=== PATIENT | male | born 1950 | race African-American/Black ===

== ENCOUNTER 2018-03-14 07:27 | Day surgery (SDC) | payer OTHER, BC ==
[2018-03-11 09:51] VITALS: BMI 34.7
[2018-03-14] MEDS ORDERED: DEXAMETHASONE SOD PHOSPHATE 4 MG/1 ML VIAL ONE (09:59)
[2018-03-14] MEDS ORDERED: LIDOCAINE HCL/PF 2% SDV 5ML VIAL ONE (09:59)
[2018-03-14] MEDS ORDERED: MIDAZOLAM HCL 2 MG/2 ML SINGLE DOSE VIAL ONE (09:59)
[2018-03-14] MEDS ORDERED: PROPOFOL 20 ML ONE (09:59)
[2018-03-14] MEDS ORDERED: LACTATED RINGERS SOLUTION 1,000 ML IV SCH (11:15)
[2018-03-14] MEDS ORDERED: ONDANSETRON 4 MG/2 ML VIAL IVPUSH PRN (11:15)
[2018-03-14] MEDS ORDERED: oxyCODONE HCL 5 MG TABLET PO PRN ×2 (11:15)
--- NOTE | 2018-03-14 12:10 | OP ---
Operative Note - Note: Operative Date: 03/14/18 Pre-Operative Diagnosis: bph; chronic kidney disease; gross hematuria Operation: cystoscopy/bilateral retrograde pyelogram/left ureteroscopy Findings: left ureteral stricture secondary to J hooking of ureter no evidence of bladder/ureteral/renal masses 2+ bladder trabeculation with cellules 3+ obstructive prostate Post-Operative Diagnosis: Other (same with left ureteral stricture) Surgeon: Marko Sneed Anesthesia: General
[2018-03-14 14:14] VITALS: BP 143/88; PULSE 72
--- NOTE | 2018-03-14 21:07 | OP ---
DATE OF OPERATION: 03/14/2018 PREOPERATIVE DIAGNOSES: Benign prostatic hypertrophy, chronic kidney disease, and gross hematuria. POSTOPERATIVE DIAGNOSES: Benign prostatic hypertrophy, chronic kidney disease, and gross hematuria, with left ureteral stricture. PROCEDURE: Cystoscopy, bilateral retrograde pyelogram, and left ureteroscopy. ATTENDING: Keke Azevedo MD ANESTHESIA: General. DESCRIPTION OF OPERATION: The patient has a history of gross hematuria. The patient has chronic kidney disease that precludes him from receiving intravenous contrast for CAT scans. The patient has had multiple episodes of gross, painless hematuria. Office cystoscopy showed no evidence of neoplasm within the bladder. The patient at this time is brought to the operating room for bilateral retrograde pyelogram to evaluate the ureter and renal collecting systems bilaterally. Patient understands all risks and benefits. Patient was brought in the operating room, placed in supine position on the operating room table. General anesthesia was administered without problems. Preoperative antibiotics were administered. At this point, the patient was placed in the dorsal lithotomy position and prepped and draped in the usual sterile manner. Cystoscopy is performed. The bladder is investigated and noticed to have an obstructive prostate with bullous edema at the bladder neck. No evidence of neoplasm within the prostate or bladder is noted; 2+ bladder trabeculation with multiple cellules is noted. Both ureteral orifices are identified. A right retrograde pyelogram is performed which is within normal limits. No evidence of renal or ureteral filling defects is noted. Excellent drainage is noted. On the left side, an attempt is made at a left retrograde pyelogram. The open-ended catheter was passed into the distal left ureteral orifice. However, it was not possible to infuse the ureter with the Hypaque. Ureteroscopy was required. The wire was passed into the left ureter. A false passage secondary to a ureteral stricture had been caused by the open-ended catheter. With the wire passed proximally, the open-ended catheter was then passed over the wire utilizing the Seldinger technique. The retrograde pyelogram was then able to be performed. There was no evidence of filling defects or neoplasms within the ureter or renal collecting system. There was adequate drainage without evidence of obstruction. The patient was left without stents. The cystoscope was removed. No complications were noted. The disposition of the patient was to the recovery room. KEKE AZEVEDO M.D. [id number]
[2018-03-14 22:12] VITALS: TEMP 98.5
== END 2018-03-14 14:36 | disposition home or self-care (01) ==
LOC: JASU-SURG 07:27
PROVIDERS: ATTEND Urology
PROC: BT14YZZ Fluoroscopy of Kidneys, Ureters and Bladder using Other Contrast (ICD-10-PCS; principal; 2018-03-14 09:00)
DX: N40.1 Benign prostatic hyperplasia with lower urinary tract symptoms (principal); R31.0 Gross hematuria; N13.5 Crossing vessel and stricture of ureter without hydronephrosis; I12.9 Hypertensive chronic kidney disease with stage 1 through stage 4 chronic kidney disease, or unspecified chronic kidney disease; N18.9 Chronic kidney disease, unspecified
CPT/HCPCS: 76000-TC-FY; 94760

== ENCOUNTER 2019-11-15 07:05 | Day surgery (SDC) | payer OTHER, BC ==
[2019-11-14 15:01] VITALS: BMI 37.7
[2019-11-15] MEDS ORDERED: ROPIVACAINE HCL 0.5% 30ML VIAL ONE (07:17)
[2019-11-15] MEDS ORDERED: SEVOFLURANE 250 ML BTL ONE (07:23)
[2019-11-15] MEDS ORDERED: DESFLURANE GAS 240 ML BOTTLE IH ONE (07:23)
[2019-11-15] MEDS ORDERED: ceFAZolin SODIUM 1 GM VIAL ONE ×3 (07:30→09:11)
[2019-11-15] MEDS ORDERED: DEXAMETHASONE SOD PHOSPHATE 4 MG/1 ML VIAL ONE (07:30)
[2019-11-15] MEDS ORDERED: SODIUM CHLORIDE 0.9% P/F 10 ML VIAL IJ ONE (07:30)
[2019-11-15] MEDS ORDERED: KETOROLAC TROMETHAMINE 30 MG/1 ML VIAL ONE (07:30)
[2019-11-15] MEDS ORDERED: LIDOCAINE HCL/PF 2% SDV 5ML VIAL ONE (07:30)
[2019-11-15] MEDS ORDERED: MIDAZOLAM HCL 2 MG/2 ML SINGLE DOSE VIAL ONE ×2 (07:31)
[2019-11-15] MEDS ORDERED: PROPOFOL 20 ML ONE (07:31)
[2019-11-15] MEDS ORDERED: oxyCODONE HCL 5 MG TABLET PO PRN ×2 (09:08)
[2019-11-15] MEDS ORDERED: ONDANSETRON 4 MG/2 ML VIAL IVPUSH PRN (09:08)
[2019-11-15] MEDS ORDERED: LACTATED RINGERS SOLUTION 1,000 ML IV SCH (09:15)
--- NOTE | 2019-11-15 09:19 | HP ---
[facility] - Chief Complaint Chief Complaint: right shoulder pain - Past Medical History Allergies/Adverse Reactions: Allergies Allergy/AdvReac Type Severity Reaction Status Date / Time No Known Drug Allergies Allergy Verified 11/15/19 07:47 - Current Medications Current Medications: Home Medications Medication Instructions Recorded Amlodipine Bes/Olmesartan Med 10 - 40 each PO DAILY 06/02/12 [Shelbi 10-20 mg Tablet] Tamsulosin HCl 0.4 mg PO DAILY #0 06/13/12 Acetaminophen [Tylenol] 650 mg PO PRN PRN 11/14/19 Hydrocodone/Acetaminophen 1 each PO Q6H #20 tablet MDD 4 11/15/19 [Hydrocodone-Acetamin 5-325 mg] Satellite Physical Exam - Physical Examination Vital Signs: Vital Signs Period Temp Pulse Resp BP Sys/Eugene Pulse Ox Last 24 Hr 98.4 F 77 18 137/81 95 General Appearance: Well Nourished, Well Developed, Alert & Oriented x3 ENT: Clear Lung: Normal air movement Extremities: Other (right shoulder- + ttp, decr rom, + neer, + ramirez, nvi) Neurological: Intact, Alert, Oriented Satellite Impression/Plan - Impression/Plan Impression: right shoulder impingement Operative Procedure: right shoulder arthrocopy with SAD Date to be Performed: 11/15/19
--- NOTE | 2019-11-15 09:20 | OP ---
Operative Note - Note: Operative Date: 11/15/19 ([facility]) Pre-Operative Diagnosis: right shoulder impingement Operation: right shoulder arthroscopy with SAD Post-Operative Diagnosis: Same as Pre-op Surgeon: Matt Yip Anesthesia: General, Local Specimens Removed: shavings Estimated Blood Loss (mls): 5
[2019-11-15 14:04] VITALS: PULSE 79; TEMP 98.3
[2019-11-15 16:12] VITALS: BP 130/72
--- NOTE | 2019-11-16 11:56 | SPEC ---
DATE OF OPERATION: 11/15/2019 PREOPERATIVE DIAGNOSIS: Right shoulder impingement syndrome. POSTOPERATIVE DIAGNOSIS: Right shoulder impingement syndrome. PROCEDURE: Right shoulder arthroscopy, subacromial decompression and distal clavicle excision. SURGEON: Rafa Lanza MD ASSISTANTS: None. EMERGENCY COMMUNICATIONS DISPATCHER/ANESTHESIOLOGIST: Zachary Ibarra CRNA with Delfino Camacho MD ANESTHESIA: Right interscalene block, LMA anesthesia. DRAINS: None. COMPLICATIONS: None. BLOOD LOSS: Minimal. BLOOD GIVEN: None. FLUID REPLACEMENT: Plasma-Lyte 700 mL. INDICATIONS: This patient is a 69-year-old male with a preoperative diagnosis of right shoulder pain, impingement syndrome and a partial rotator cuff tear. After understanding the potential risks, complications, alternatives and benefits of surgery versus nonsurgical treatment the patient elected to undergo this procedure. DESCRIPTION OF PROCEDURE: Patient was brought to the operating room. Peripheral IV placed. IV sedation given. Ancef 3 g were given. A right interscalene block was performed. LMA anesthesia was induced. He was placed in the beach-chair position with ample padding throughout. The right upper extremity was prepped and draped in a sterile fashion. First I did a manipulation under anesthesia and there was no resistance or tightness. The bony landmarks were then marked out with a marking pen. The posterior portal was established. A diagnostic glenohumeral arthroscopy was performed. The labrum from the 11 o'clock to the 5 o'clock position was frayed, but there was no tear. The arm was put through a full range of motion. The biceps anchor looked good. There was no osteoarthritis of the glenoid or the humeral head. The biceps tendon itself looked good. There was a small undersurface tear of the rotator cuff. Photographs were taken. It comprised well under 5% of the thickness of the rotator cuff. Next our attention turned to the subacromial space. A lateral portal was established with a spinal needle and a No. 15 scalpel blade and a Green cannula was introduced into the subacromial space. There was a lot of inflammatory bursitis. After an extensive soft tissue debridement/soft tissue bursectomy was performed this revealed a large subacromial spur and a moderate-sized distal clavicular spur. The additional soft tissue debridement was done with the ArthroCare wand and the straight shaver and the 5.5-mm oval bur was used to take down the bone spur on the undersurface of the acromion as well as the distal clavicle. Photographs were taken. The area was fine-tuned in reverse and then with the straight shaver. It was quite smooth at the end. I was quite happy with the decompression of both the undersurface of the acromion and the clavicle. I put the arm through a full range of motion and directly visualized the rotator cuff. There were no points of impingement. There was a very small top surface rotator cuff tear. Photographs were taken. This area was debrided with a shaver and then cauterized to smooth it out. This also comprised well under 5% of the bursal surface of the rotator cuff. The area was copiously irrigated and washed out. The shaver again introduced to remove all bony debris and soft tissue debris. Excess saline was removed. Arthroscopy portals were closed with 3-0 nylon sutures. The area was then washed and dried and covered with an Aquacel dressing. His arm was put into a sling. There were no complications during the case. Total operative time was about 40 minutes and he was brought to the ambulatory recovery room in stable condition. RAFA LANZA M.D. [id number]
--- NOTE | 2019-11-16 19:04 | PATH ---
Surgical Pathology Report Patient Name: DAY PHILLIPS Med. Rec. #: [id number] /Age/Gender: 1950 (Age: 69) / M Account: [id number] Location: [facility] SURGICAL Taken: 11/15/2019 Received: 11/15/2019 Reported: 11/16/2019 Physicians: Matt Yip M.D. Specimen(s) Received RIGHT SHOULDER SHAVINGS Clinical History Right shoulder impingement Final Diagnosis SHOULDER SHAVINGS, RIGHT, ARTHROSCOPY, SUBACROMIAL DECOMPRESSION: FRAGMENTS OF BENIGN CARTILAGE, BONE, DENSE FIBROCONNECTIVE TISSUE, ADIPOSE TISSUE, SYNOVIUM, AND SKELETAL MUSCLE. Electronically Signed Virginia Barron M.D. Gross Description Received in formalin, labeled "right shoulder shavings," is a 5.0 x 4.5 x 0.4 cm. aggregate of penn-yellow soft tissue fragments. A asset protection representative portion is submitted in one cassette. /11/15/[address] [facility]/11/15/2019
== END 2019-11-15 13:30 | disposition home or self-care (01) ==
LOC: JASU-SURG 07:05
PROVIDERS: ATTEND Orthopaedic Surgery
PROC: 0PB94ZZ Excision of Right Clavicle, Percutaneous Endoscopic Approach (ICD-10-PCS; 2019-11-15)
PROC: 0RNJ4ZZ Release Right Shoulder Joint, Percutaneous Endoscopic Approach (ICD-10-PCS; principal; 2019-11-15 09:00)
DX: M75.41 Impingement syndrome of right shoulder (principal)
CPT/HCPCS: 88304-TC; 94760